=== PATIENT | male | born 1975 | race Caucasian/White ===

== ENCOUNTER → 2016-04-17 | Outpatient (CLI) | payer BC ==
[2016-04-17 15:50] LABS: CHCM 35.8; HCT 47.5 % (39.0-53.0); HDW 2.51; HGB 16.1 gm/dL (13.0-17.5); MCH 30.6 pg (25.0-35.0); Mean Platelet Volume 7.8; RBC 5.28 m/uL (4.30-5.90); RDW 12.1 % (11.5-15.5); WBC 4.7 k/uL (3.8-10.6)
[2016-04-17 16:00] LABS: ALT 56 U/L (21-72); AST 30 U/L (17-59); Alkaline Phosphatase 69 U/L (38-126); Anion Gap 13 mmol/L; Blood Urea Nitrogen 15 mg/dL (9-20); Calcium 9.6 mg/dL (8.4-10.2); Carbon Dioxide 25 mmol/L (22-30); Chloride 104 mmol/L (98-107); Cholesterol 232 mg/dL (<200); Glucose 95 mg/dL (74-99); HDL Cholesterol 51 mg/dL (40-60); Non-African American GFR(MDRD) >60 (>60 ml/min/1.73 sqM); Potassium 4.2 mmol/L (3.5-5.1); Sodium 142 mmol/L (137-145); Total Bilirubin 1.1 mg/dL (0.2-1.3); Total Protein 8.5 g/dL (6.3-8.2); Triglycerides 96 mg/dL (<150)
== END | disposition home or self-care (01) ==
LOC: LABWHC1 15:07
PROVIDERS: ATTEND Family Medicine
DX: Z00.00 Encounter for general adult medical examination without abnormal findings (principal)
CPT/HCPCS: 36415; 80053; 80061; 85027